=== PATIENT | male | born 1980 | race Caucasian/White ===

== ENCOUNTER → 2016-07-31 | Outpatient (REF) | payer OTHER ==
[~2016-07-31] MED LIST: CELE50CA; IBUP800T; TOPI25TA2; TRAM50TA2; VICO5TAB
== END ==
LOC: M SFHCLERA 09:57
PROVIDERS: ATTEND Physician Assistant
DX: J02.9 Acute pharyngitis, unspecified (principal)

== ENCOUNTER 2016-08-13 20:17 | Emergency (ER) | payer OTHER ==
[2016-08-13] MEDS ORDERED: KETOROLAC 30 MG/ML VIAL (J1885) As Ordered ONE (21:31)
[2016-08-13] MEDS ORDERED: ONDANSETRON 4MG/2ML VIAL (J2405) As Ordered ONE (21:31)
[2016-08-13 21:42] LABS: BASO % 0.4 % (0.0-1.0); EOS # 0.1 K/mm3 (0.0-0.50); EOS % 0.5 % (0.0-3.0); LARGE UNSTAINED CELL # 0.2 K/mm3 (0.0-0.4); LARGE UNSTAINED CELL % 1.3 % (0.0-4.0); LYMPH # 0.5 K/mm3 (1.5-4.5); LYMPH % 3.7 % (24.0-44.0); MEAN CORPUSCULAR HEMOGLOBIN 33.7 pg (27.0-33.0); MEAN CORPUSCULAR HGB CONC 35.7 g/dl (32.0-36.5); MEAN CORPUSCULAR VOLUME 94.4 fl (80.0-96.0); MONO # 0.7 K/mm3 (0.0-0.8); MONO % 5.1 % (0.0-5.0); NEUTROPHILS # 11.5 K/mm3 (1.8-7.7); NEUTROPHILS % 89.1 % (36.0-66.0); PLATELET COUNT, AUTOMATED 244 k/mm3 (150-450); RED CELL DISTRIBUTION WIDTH 12.6 % (11.5-14.5); WHITE BLOOD COUNT 12.9 K/mm3 (4.0-10.0)
[2016-08-13 21:49] LABS: ALBUMIN 4.7 GM/DL (3.2-5.2); ALBUMIN/GLOBULIN RATIO 1.21 (1.00-1.93); ALKALINE PHOSPHATASE 84 U/L (45-117); ALT/SGPT 69 U/L (12-78); AMYLASE 69 U/L (25-115); ANION GAP 10 MEQ/L (8-16); AST/SGOT 33 U/L (15-37); BILIRUBIN,DIRECT 0.2 MG/DL (0.0-0.2); BILIRUBIN,TOTAL 0.9 MG/DL (0.2-1.0); BLOOD UREA NITROGEN 21 MG/DL (7-18); CALCIUM LEVEL 9.3 MG/DL (8.5-10.1); CARBON DIOXIDE LEVEL 25 MEQ/L (21-32); CHLORIDE LEVEL 105 MEQ/L (98-107); CREATININE FOR GFR 1.25 MG/DL (0.70-1.30); GLOMERULAR FILTRATION RATE > 60.0 (>60); GLUCOSE, FASTING 163 MG/DL (70-105); POTASSIUM SERUM 3.7 MEQ/L (3.5-5.1); SODIUM LEVEL 140 MEQ/L (136-145); TOTAL PROTEIN 8.6 GM/DL (6.4-8.2)
[2016-08-13] MEDS ORDERED: ONDANSETRON 4 MG ORAL DISINTEGRATING TAB (S0181) As Ordered ONE (23:46)
[2016-08-13] MEDS ORDERED: NORCO 5/325MG TABLET (BULK) As Ordered ONE (23:46)
--- NOTE | 2016-08-14 | EDDOCDS ---
Nurse's Notes [facility] Name: Mayur Mora Age: 36 yrs Sex: Male : 1980 Arrival Date: 08/13/2016 Time: 20:17 Bed 17 Private MD: Diagnosis: Other and unspecified noninfective gastroenteritis and colitis;Acute pancreatitis Presentation: 08/13 20:35 Presenting complaint: Patient states: abdominal pain started around 530 pm in pts whole ko2 abdomen and then around 730 pm tonight pt had pain in left and right upper abdomen as well as diarrhea and nausea. Risk factors: the patient reports not having a history of previous torsion. Suicide/Homicide risk assessment- the patient denies having any suicidal and/or homicidal ideations and does not present with any other emotional, behavioral or mental health complaints. Transition of care: patient was not received from another setting of care. Care prior to arrival: See EMS report. 20:35 Acuity: EVELYN Level 3 ko2 20:35 Method Of Arrival: Ambulance ko2 22:37 Adult Sepsis Screening: The patient does not have new or worsening altered mentation. ko2 Patient's respiratory rate is less than 22. Systolic blood pressure is greater than 100. Patient has a qSOFA score of 0- Negative Sepsis Screen. 23:58 Status: retired. ko2 Triage Assessment: 20:41 General: Appears ill, Behavior is appropriate for age. Pain: Location: right upper ko2 quadrant and left upper quadrant. HIV screening NA for this visit. HIV screening NA for this visit. The patient is triaged at the bedside. See Assessment in Nurses Notes section of ED record. Neurological: Level of Consciousness is awake, alert. Cardiovascular: Heart tones S1 S2 present. Respiratory: Airway is patent Respiratory effort is even, unlabored, Respiratory pattern is regular, symmetrical. GI: Abdomen is non- distended Pt is actively vomiting Bowel sounds present X 4 quads. Reports. Derm: Skin is pink, warm & dry. Musculoskeletal: Range of motion intact in all extremities. Historical: - Allergies: No known drug Allergies; - Home Meds: 1. venlafaxine 75 mg oral cp24 3 caps once daily 2. atorvastatin 40 mg oral tab - PMHx: Hypercholesterolemia; Anxiety Disorder; PTSD; TBI; back pain; neck pain; - PSHx: Vasectomy; right shoulder; - Social history: Smoking status: Patient states was never smoker of tobacco. No barriers to communication noted, The patient speaks fluent Yoruba, Speaks appropriately for age. - Family history: Not pertinent. - : The pt / caregiver states he / she is not on anticoagulants. Home medication list is obtained from pill bottles. - Exposure Risk Screening:: None identified. Screenin:38 Screening information is obtained from the patient. Fall risk: No risks identified. ko2 Assistance ADL's: requires no assistance with activities of daily living. Abuse/DV Screen: The patient / caregiver reports he/she is: not in a situation that causes fear, pain or injury. Nutritional screening: No deficits noted. Advance Directives: Currently, there is no health care proxy. There is no active DNR order. There is no living will. There is no Power of Crop Grain Or Livestock Farm Manager. home support is adequate. Assessment: 20:40 General: See triage assessment. ko2 21:45 General: Appears ill, Behavior is appropriate for age, cooperative. Neurological: Level ko2 of Consciousness is awake, alert. Respiratory: Airway is patent Respiratory effort is even, unlabored. GI: Abdomen is non- distended. 22:37 General: Appears in no apparent distress, Behavior is appropriate for age, cooperative. ko2 Pain: Location: left upper quadrant and right upper quadrant Pain currently is 4 out of 10 on a pain scale. Neurological: Level of Consciousness is awake, alert. Respiratory: Airway is patent Respiratory effort is even, unlabored. Derm: Skin is normal. Vital Signs: 20:38 BP 125 / 93; Pulse 95; Resp 20; Temp 96.2(O); Pulse Ox 100% on R/A; Weight 104.33 kg; ko2 Height 5 ft. 10 in. (177.80 cm); Pain 10/10; 22:57 BP 123 / 71 LA Supine (auto/reg); Pulse 90 MON; Resp 18 S; Temp 96.6(T); Pulse Ox 100% cln on R/A; Pain 10/10; 20:38 Body Mass Index 33.00 (104.33 kg, 177.80 cm) ko2 Vitals: 20:38 Log In Time N/A - ambulance arrival. ko2 ED Course: 20:26 Patient visited by Albert Bui PCA. mdr 20:26 Patient moved to Waiting mdr 20:27 Laney Mckeon,RN is Primary Nurse. mdr 20:27 Patient moved to 17 mdr 20:38 Triage Initiated ko2 21:09 Patient visited by Laney Mckeon RN. ko2 21:09 Inserted saline lock: 20 gauge in left antecubital area and blood collected. The ko2 patient tolerated the procedure well. 21:10 [facility] ke 21:10 Patient visited by Usama Jones FNP. ke 21:10 Patient visited by Usama Jones FNP. ke 21:11 Patient visited by Laney Mckeon RN. ko2 21:23 Amylase Sent. ko2 21:23 Basic Metabolic Profile Sent. ko2 21:23 CBC with Diff Sent. ko2 21:23 Lipase Sent. ko2 21:23 Liver Profile Sent. ko2 21:36 Patient moved to Radiology lucy 22:02 Patient moved to 17 lucy 22:14 Patient visited by Laney Mckeon RN. ko2 22:38 The patient / caregiver is instructed regarding the plan of care and ED course. ko2 22:51 Patient visited by Usama Jones FNP. ke 23:01 Patient visited by Catalina Deras PCA. cln 23:10 [facility] Payment Agreement was scanned into [employer] and attached to record. zo 23:53 Discontinued lock intact, bleeding controlled, pressure dressing applied, No ko2 redness/swelling at site. No procedures done that require assistance. Administered Medications: 21:40 Drug: NS 0.9% 1000 ml [sodium chloride 0.9 % intravenous solution] Route: IV; Rate: ko2 bolus; Site: left antecubital; 21:41 Drug: Ondansetron 4 mg [ondansetron HCl 2 mg/mL intravenous solution (2 mL)] Route: ko2 IVP; Site: left antecubital; 21:41 Drug: ketorolac 30 mg [ketorolac 30 mg/mL (1 mL) injection solution (1 mL)] Route: IVP; ko2 Site: left antecubital; 23:52 Drug: HYDROcodone-acetaminophen 4 pack- 1 packets [hydrocodone 5 mg-acetaminophen 325 ko2 mg tablet (1 tabs)] {Co-Signature: [email or web address] (Shirlene Diallo RN).} Route: PO; 23:53 Drug: Ondansetron ODT 4 mg [ondansetron 4 mg disintegrating tablet (1 tabs)] Route: PO; ko2 Order Results: Lab Order: Amylase; SPEC'08/13/16 21:06 Test: AMYLASE; Value: 69; Range: 25-115; Units: U/L; Status: F Lab Order: Basic Metabolic Profile; SPEC'08/13/16 21:06 Test: GLUCOSE, FASTING; Value: 163; Range: 70-105; Abnormal: Above high normal; Units: MG/DL; Status: F Test: BLOOD UREA NITROGEN; Value: 21; Range: 7-18; Abnormal: Above high normal; Units: MG/DL; Status: F Test: CREATININE FOR GFR; Value: 1.25; Range: 0.70-1.30; Units: MG/DL; Status: F Test: GLOMERULAR FILTRATION RATE; Value: > 60.0; Range: >60; Status: F Test: SODIUM LEVEL; Value: 140; Range: 136-145; Units: MEQ/L; Status: F Test: POTASSIUM SERUM; Value: 3.7; Range: 3.5-5.1; Units: MEQ/L; Status: F Test: CHLORIDE LEVEL; Value: 105; Range: 98-107; Units: MEQ/L; Status: F Test: CARBON DIOXIDE LEVEL; Value: 25; Range: 21-32; Units: MEQ/L; Status: F Test: ANION GAP; Value: 10; Range: 8-16; Units: MEQ/L; Status: F Test: CALCIUM LEVEL; Value: 9.3; Range: 8.5-10.1; Units: MG/DL; Status: F Test Note: ; Units are mL/min/1.73 m2 Chronic Kidney Disease Staging per NKF: Stage I & II GFR >=60 Normal to Mildly Decreased Stage III GFR 30-59 Moderately Decreased Stage IV GFR 15-29 Severely Decreased Stage V GFR <15 Very Little GFR Left ESRD GFR <15 on MICROSTRATEGY ARCHITECT DEVELOPER Lab Order: CBC with Diff; SPEC'08/13/16 21:06 Test: WHITE BLOOD COUNT; Value: 12.9; Range: 4.0-10.0; Abnormal: Above high normal; Units: K/mm3; Status: F Test: RED BLOOD COUNT; Value: 5.36; Range: 4.30-6.10; Units: M/mm3; Status: F Test: HEMOGLOBIN; Value: 18.1; Range: 14.0-18.0; Abnormal: Above high normal; Units: g/dl; Status: F Test: HEMATOCRIT; Value: 50.6; Range: 42.0-52.0; Units: %; Status: F Test: MEAN CORPUSCULAR VOLUME; Value: 94.4; Range: 80.0-96.0; Units: fl; Status: F Test: MEAN CORPUSCULAR HEMOGLOBIN; Value: 33.7; Range: 27.0-33.0; Abnormal: Above high normal; Units: pg; Status: F Test: MEAN CORPUSCULAR HGB CONC; Value: 35.7; Range: 32.0-36.5; Units: g/dl; Status: F Test: RED CELL DISTRIBUTION WIDTH; Value: 12.6; Range: 11.5-14.5; Units: %; Status: F Test: PLATELET COUNT, AUTOMATED; Value: 244; Range: 150-450; Units: k/mm3; Status: F Test: NEUTROPHILS %; Value: 89.1; Range: 36.0-66.0; Abnormal: Above high normal; Units: %; Status: F Test: LYMPH %; Value: 3.7; Range: 24.0-44.0; Abnormal: Below low normal; Units: %; Status: F Test: MONO %; Value: 5.1; Range: 0.0-5.0; Abnormal: Above high normal; Units: %; Status: F Test: EOS %; Value: 0.5; Range: 0.0-3.0; Units: %; Status: F Test: BASO %; Value: 0.4; Range: 0.0-1.0; Units: %; Status: F Test: LARGE UNSTAINED CELL %; Value: 1.3; Range: 0.0-4.0; Units: %; Status: F Test: NEUTROPHILS #; Value: 11.5; Range: 1.8-7.7; Abnormal: Above high normal; Units: K/mm3; Status: F Test: LYMPH #; Value: 0.5; Range: 1.5-4.5; Abnormal: Below low normal; Units: K/mm3; Status: F Test: MONO #; Value: 0.7; Range: 0.0-0.8; Units: K/mm3; Status: F Test: EOS #; Value: 0.1; Range: 0.0-0.50; Units: K/mm3; Status: F Test: BASO #; Value: 0.0; Range: 0.0-0.2; Units: K/mm3; Status: F Test: LARGE UNSTAINED CELL #; Value: 0.2; Range: 0.0-0.4; Units: K/mm3; Status: F Lab Order: Lipase; SPEC'M 08/13/16 21:06 Test: LIPASE; Value: 511; Range: 73-393; Abnormal: Above high normal; Units: U/L; Status: F Lab Order: Liver Profile; SPEC' 08/13/16 21:06 Test: AST/SGOT; Value: 33; Range: 15-37; Units: U/L; Status: F Test: ALT/SGPT; Value: 69; Range: 12-78; Units: U/L; Status: F Test: ALKALINE PHOSPHATASE; Value: 84; Range: 45-117; Units: U/L; Status: F Test: BILIRUBIN,TOTAL; Value: 0.9; Range: 0.2-1.0; Units: MG/DL; Status: F Test: BILIRUBIN,DIRECT; Value: 0.2; Range: 0.0-0.2; Units: MG/DL; Status: F Test: TOTAL PROTEIN; Value: 8.6; Range: 6.4-8.2; Abnormal: Above high normal; Units: GM/DL; Status: F Test: ALBUMIN; Value: 4.7; Range: 3.2-5.2; Units: GM/DL; Status: F Test: ALBUMIN/GLOBULIN RATIO; Value: 1.21; Range: 1.00-1.93; Status: F Outcome: 22:56 Discharge ordered by Provider. ke 23:53 Discharge Assessment: Patient awake, alert and oriented x 3. No cognitive and/or ko2 functional deficits noted. Patient verbalized understanding of disposition instructions. Discharge Assessment: patient administered narcotics - no. The following High Risk Discharge criteria are identified: None. Condition: stable. Discharge instructions given to patient. 23:59 No special radiology studies were completed. Property sent home with patient. beth2 23:59 Patient left the ED. ko2 Signatures: Fly Bautista Karl, CORPORATE SERVICES MANAGER CORPORATE SERVICES MANAGER Gabriele Hamm Kari,RN RN ko2 Albert Bui, HULL SORTER HULL SORTER mdr Catalina Deras, HULL SORTER HULL SORTER cln Shirlene Diallo RN [email or web address] MTDD
--- NOTE | 2016-08-14 | EDDOCDS ---
Physician Documentation [facility] Name: Mayur Mora Age: 36 yrs Sex: Male : 1980 Arrival Date: 08/13/2016 Time: 20:17 Bed 17 Private MD: Disposition: 08/13/16 22:56 Discharged to Home/Self Care. Impression: Other and unspecified noninfective gastroenteritis and colitis, Acute pancreatitis. - Condition is Stable. - Discharge Instructions: Acute Pancreatitis, Viral Gastroenteritis. - Prescriptions for [place]ebul[place] 5- 325 mg Oral Tablet - take 1 tablet by ORAL route every 6 hours As needed MDD: 4 tabs; 20 tablet. ZOFRAN ODT 4 mg - dissolve 1 tablet by ORAL route 4 times per day As needed do not chew, do not swallow whole; 10 tablet. - Work Release Form - 2 day, Medication Reconciliation, Local Pharmacy Hours form. - Follow up: Private Physician; When: 4 - 5 days; Reason: Recheck today's complaints, Continuance of care. - Problem is an ongoing problem. - Symptoms are unchanged. Historical: - Allergies: No known drug Allergies; - Home Meds: 1. venlafaxine 75 mg oral cp24 3 caps once daily 2. atorvastatin 40 mg oral tab - PMHx: Hypercholesterolemia; Anxiety Disorder; PTSD; TBI; back pain; neck pain; - PSHx: Vasectomy; right shoulder; - Social history: Smoking status: Patient states was never smoker of tobacco. No barriers to communication noted, The patient speaks fluent Central African, Speaks appropriately for age. - Family history: Not pertinent. - : The pt / caregiver states he / she is not on anticoagulants. Home medication list is obtained from pill bottles. - Exposure Risk Screening:: None identified. Vital Signs: 08/13 20:38 BP 125 / 93; Pulse 95; Resp 20; Temp 96.2(O); Pulse Ox 100% on R/A; Weight 104.33 kg / ko2 230.01 lbs; Height 5 ft. 10 in. (177.80 cm); Pain 10/10; 22:57 BP 123 / 71 LA Supine (auto/reg); Pulse 90 MON; Resp 18 S; Temp 96.6(T); Pulse Ox 100% cln on R/A; Pain 10/10; 20:38 Body Mass Index 33.00 (104.33 kg, 177.80 cm) ko2 MDM: 21:18 NS 0.9% 1000 ml IV at bolus once ordered. ke 21:18 Ondansetron 4 mg IVP once ordered. ke 21:18 ketorolac 30 mg IVP once ordered. ke 21:18 IV Saline Lock ordered. ke 21:18 Undress patient appropriately for examination ordered. ke 21:19 Amylase Ordered. EDMS 21:19 Basic Metabolic Profile Ordered. EDMS 21:19 CBC with Diff Ordered. EDMS 21:19 Lipase Ordered. EDMS 21:19 Liver Profile Ordered. EDMS 21:19 Abdomen, Flat\E\Upright,PA Chest Ordered. EDMS 21:19 NOTHING BY MOUTH+DIET ordered. EDMS 21:50 Basic Metabolic Profile Reviewed. ke 21:50 CBC with Diff Reviewed. ke 21:50 Lipase Reviewed. ke 21:50 Liver Profile Reviewed. ke 21:50 Amylase Reviewed. ke 22:55 HYDROcodone-acetaminophen 4 pack- 5 mg-325 mg 1 packets PO Per package directions; ke Dispense with patient. 1 po q4h prn for pain ordered. 22:55 Ondansetron ODT Oral Disintegrating Tablet 4 mg PO once; to go please ordered. ke 22:59 Financial registration complete. zo 23:10 [facility] Payment Agreement was scanned into [employer] and attached to record. zo Administered Medications: 21:40 Drug: NS 0.9% 1000 ml [sodium chloride 0.9 % intravenous solution] Route: IV; Rate: ko2 bolus; Site: left antecubital; 21:41 Drug: Ondansetron 4 mg [ondansetron HCl 2 mg/mL intravenous solution (2 mL)] Route: ko2 IVP; Site: left antecubital; 21:41 Drug: ketorolac 30 mg [ketorolac 30 mg/mL (1 mL) injection solution (1 mL)] Route: IVP; ko2 Site: left antecubital; 23:52 Drug: HYDROcodone-acetaminophen 4 pack- 1 packets [hydrocodone 5 mg-acetaminophen 325 ko2 mg tablet (1 tabs)] {Co-Signature: [email or web address] (Shirlene Diallo RN).} Route: PO; 23:53 Drug: Ondansetron ODT 4 mg [ondansetron 4 mg disintegrating tablet (1 tabs)] Route: PO; ko2 Signatures: Dispatcher [employer] Usama Yan, EXECUTIVE DIRECTOR Gabriele Akins Kari,RN RN ko2 Shirlene Diallo RN [email or web address] The chart was reviewed and I authenticate all verbal orders and agree with the evaluation and treatment provided.Attachments: 23:10 [facility] Payment Agreement zo MTDD
--- NOTE | 2016-08-14 01:16 | REP ---
Clinical: Acute abdominal pain. Technique: Upright view of the chest with supine and upright views of the abdomen and pelvis. Findings: Frontal upright view of the chest demonstrates no acute cardiopulmonary process or free air below the diaphragm to suspect pneumoperitoneum. Supine and upright views of the abdomen and pelvis demonstrate nonspecific bowel gas pattern without obstruction or perforation. No organomegaly. No abnormal calcifications. Skeletal structures normal for age. Impression: Nonspecific bowel gas pattern. Signed by Jay Robin MD 08/14/2016 01:07 A
--- NOTE | 2016-08-16 01:00 | EDDOCDS ---
Physician Documentation [facility] Name: Mayur Mora Age: 36 yrs Sex: Male : 1980 Arrival Date: 08/13/2016 Time: 20:17 Bed 17 Private MD: Disposition: 08/13/16 22:56 Discharged to Home/Self Care. Impression: Other and unspecified noninfective gastroenteritis and colitis, Acute pancreatitis. - Condition is Stable. - Discharge Instructions: Acute Pancreatitis, Viral Gastroenteritis. - Prescriptions for [place] 5- 325 mg Oral Tablet - take 1 tablet by ORAL route every 6 hours As needed MDD: 4 tabs; 20 tablet. ZOFRAN ODT 4 mg - dissolve 1 tablet by ORAL route 4 times per day As needed do not chew, do not swallow whole; 10 tablet. - Work Release Form - 2 day, Medication Reconciliation, Local Pharmacy Hours form. - Follow up: Private Physician; When: 4 - 5 days; Reason: Recheck today's complaints, Continuance of care. - Problem is an ongoing problem. - Symptoms are unchanged. Historical: - Allergies: No known drug Allergies; - Home Meds: 1. venlafaxine 75 mg oral cp24 3 caps once daily 2. atorvastatin 40 mg oral tab - PMHx: Hypercholesterolemia; Anxiety Disorder; PTSD; TBI; back pain; neck pain; - PSHx: Vasectomy; right shoulder; - Social history: Smoking status: Patient states was never smoker of tobacco. No barriers to communication noted, The patient speaks fluent Nepalese, Speaks appropriately for age. - Family history: Not pertinent. - : The pt / caregiver states he / she is not on anticoagulants. Home medication list is obtained from pill bottles. - Exposure Risk Screening:: None identified. Vital Signs: 08/13 20:38 BP 125 / 93; Pulse 95; Resp 20; Temp 96.2(O); Pulse Ox 100% on R/A; Weight 104.33 kg / ko2 230.01 lbs; Height 5 ft. 10 in. (177.80 cm); Pain 10/10; 22:57 BP 123 / 71 LA Supine (auto/reg); Pulse 90 MON; Resp 18 S; Temp 96.6(T); Pulse Ox 100% cln on R/A; Pain 10/10; 20:38 Body Mass Index 33.00 (104.33 kg, 177.80 cm) ko2 MDM: 21:18 NS 0.9% 1000 ml IV at bolus once ordered. ke 21:18 Ondansetron 4 mg IVP once ordered. ke 21:18 ketorolac 30 mg IVP once ordered. ke 21:18 IV Saline Lock ordered. ke 21:18 Undress patient appropriately for examination ordered. ke 21:19 Amylase Ordered. EDMS 21:19 Basic Metabolic Profile Ordered. EDMS 21:19 CBC with Diff Ordered. EDMS 21:19 Lipase Ordered. EDMS 21:19 Liver Profile Ordered. EDMS 21:19 Abdomen, Flat\E\Upright,PA Chest Ordered. EDMS 21:19 NOTHING BY MOUTH+DIET ordered. EDMS 21:50 Basic Metabolic Profile Reviewed. ke 21:50 CBC with Diff Reviewed. ke 21:50 Lipase Reviewed. ke 21:50 Liver Profile Reviewed. ke 21:50 Amylase Reviewed. ke 22:55 HYDROcodone-acetaminophen 4 pack- 5 mg-325 mg 1 packets PO Per package directions; ke Dispense with patient. 1 po q4h prn for pain ordered. 22:55 Ondansetron ODT Oral Disintegrating Tablet 4 mg PO once; to go please ordered. ke 22:59 Financial registration complete. zo 23:10 [facility] Payment Agreement was scanned into [employer] and attached to record. zo 08/14 11:42 T-Sheet-- Draft Copy was scanned into [employer] and attached to record. gb Administered Medications: 08/13 21:40 Drug: NS 0.9% 1000 ml [sodium chloride 0.9 % intravenous solution] Route: IV; Rate: ko2 bolus; Site: left antecubital; 21:41 Drug: Ondansetron 4 mg [ondansetron HCl 2 mg/mL intravenous solution (2 mL)] Route: ko2 IVP; Site: left antecubital; 21:41 Drug: ketorolac 30 mg [ketorolac 30 mg/mL (1 mL) injection solution (1 mL)] Route: IVP; ko2 Site: left antecubital; 23:52 Drug: HYDROcodone-acetaminophen 4 pack- 1 packets [hydrocodone 5 mg-acetaminophen 325 ko2 mg tablet (1 tabs)] {Co-Signature: [email or web address] (Shirlene Diallo RN).} Route: PO; 23:53 Drug: Ondansetron ODT 4 mg [ondansetron 4 mg disintegrating tablet (1 tabs)] Route: PO; ko2 Signatures: Dispatcher [employer] EDAlia Velasquez, Serge Reg gb Usama Jones, ELECTION SUPERVISOR ELECTION SUPERVISOR Gabriele Hamm Kari,RN RN ko2 Shirlene Diallo RN [email or web address] The chart was reviewed and I authenticate all verbal orders and agree with the evaluation and treatment provided.Attachments: 23:10 [facility] Payment Agreement zo 08/14 11:42 T-Sheet-- Draft Copy gb Chart Complete MTDD
--- NOTE | 2016-08-16 01:00 | EDDOCDS ---
Physician Documentation [facility] Name: Mayur Mora Age: 36 yrs Sex: Male : 1980 Arrival Date: 08/13/2016 Time: 20:17 Bed 17 Private MD: Disposition: 08/13/16 22:56 Discharged to Home/Self Care. Impression: Other and unspecified noninfective gastroenteritis and colitis, Acute pancreatitis. - Condition is Stable. - Discharge Instructions: Acute Pancreatitis, Viral Gastroenteritis. - Prescriptions for [place] 5- 325 mg Oral Tablet - take 1 tablet by ORAL route every 6 hours As needed MDD: 4 tabs; 20 tablet. ZOFRAN ODT 4 mg - dissolve 1 tablet by ORAL route 4 times per day As needed do not chew, do not swallow whole; 10 tablet. - Work Release Form - 2 day, Medication Reconciliation, Local Pharmacy Hours form. - Follow up: Private Physician; When: 4 - 5 days; Reason: Recheck today's complaints, Continuance of care. - Problem is an ongoing problem. - Symptoms are unchanged. Historical: - Allergies: No known drug Allergies; - Home Meds: 1. venlafaxine 75 mg oral cp24 3 caps once daily 2. atorvastatin 40 mg oral tab - PMHx: Hypercholesterolemia; Anxiety Disorder; PTSD; TBI; back pain; neck pain; - PSHx: Vasectomy; right shoulder; - Social history: Smoking status: Patient states was never smoker of tobacco. No barriers to communication noted, The patient speaks fluent Cook Islander, Speaks appropriately for age. - Family history: Not pertinent. - : The pt / caregiver states he / she is not on anticoagulants. Home medication list is obtained from pill bottles. - Exposure Risk Screening:: None identified. Vital Signs: 08/13 20:38 BP 125 / 93; Pulse 95; Resp 20; Temp 96.2(O); Pulse Ox 100% on R/A; Weight 104.33 kg / ko2 230.01 lbs; Height 5 ft. 10 in. (177.80 cm); Pain 10/10; 22:57 BP 123 / 71 LA Supine (auto/reg); Pulse 90 MON; Resp 18 S; Temp 96.6(T); Pulse Ox 100% cln on R/A; Pain 10/10; 20:38 Body Mass Index 33.00 (104.33 kg, 177.80 cm) ko2 MDM: 21:18 NS 0.9% 1000 ml IV at bolus once ordered. ke 21:18 Ondansetron 4 mg IVP once ordered. ke 21:18 ketorolac 30 mg IVP once ordered. ke 21:18 IV Saline Lock ordered. ke 21:18 Undress patient appropriately for examination ordered. ke 21:19 Amylase Ordered. EDMS 21:19 Basic Metabolic Profile Ordered. EDMS 21:19 CBC with Diff Ordered. EDMS 21:19 Lipase Ordered. EDMS 21:19 Liver Profile Ordered. EDMS 21:19 Abdomen, Flat\E\Upright,PA Chest Ordered. EDMS 21:19 NOTHING BY MOUTH+DIET ordered. EDMS 21:50 Basic Metabolic Profile Reviewed. ke 21:50 CBC with Diff Reviewed. ke 21:50 Lipase Reviewed. ke 21:50 Liver Profile Reviewed. ke 21:50 Amylase Reviewed. ke 22:55 HYDROcodone-acetaminophen 4 pack- 5 mg-325 mg 1 packets PO Per package directions; ke Dispense with patient. 1 po q4h prn for pain ordered. 22:55 Ondansetron ODT Oral Disintegrating Tablet 4 mg PO once; to go please ordered. ke 22:59 Financial registration complete. zo 23:10 [facility] Payment Agreement was scanned into [employer] and attached to record. zo 08/14 11:42 T-Sheet-- Draft Copy was scanned into [employer] and attached to record. gb Administered Medications: 08/13 21:40 Drug: NS 0.9% 1000 ml [sodium chloride 0.9 % intravenous solution] Route: IV; Rate: ko2 bolus; Site: left antecubital; 21:41 Drug: Ondansetron 4 mg [ondansetron HCl 2 mg/mL intravenous solution (2 mL)] Route: ko2 IVP; Site: left antecubital; 21:41 Drug: ketorolac 30 mg [ketorolac 30 mg/mL (1 mL) injection solution (1 mL)] Route: IVP; ko2 Site: left antecubital; 23:52 Drug: HYDROcodone-acetaminophen 4 pack- 1 packets [hydrocodone 5 mg-acetaminophen 325 ko2 mg tablet (1 tabs)] {Co-Signature: [email or web address] (Shirlene Diallo RN).} Route: PO; 23:53 Drug: Ondansetron ODT 4 mg [ondansetron 4 mg disintegrating tablet (1 tabs)] Route: PO; ko2 Signatures: Dispatcher [employer] EDAlia Velasquez, Serge Reg gb Usama Jones, RECESSING MACHINE OPERATOR RECESSING MACHINE OPERATOR Gabriele Hamm Kari,RN RN ko2 Shirlene Diallo RN [email or web address] The chart was reviewed and I authenticate all verbal orders and agree with the evaluation and treatment provided.Attachments: 23:10 [facility] Payment Agreement zo 08/14 11:42 T-Sheet-- Draft Copy gb Chart Complete MTDD
--- NOTE | 2016-08-16 01:01 | EDDOCDS ---
Nurse's Notes [facility] Name: Mayur Mora Age: 36 yrs Sex: Male : 1980 Arrival Date: 08/13/2016 Time: 20:17 Bed 17 Private MD: Diagnosis: Other and unspecified noninfective gastroenteritis and colitis;Acute pancreatitis Presentation: 08/13 20:35 Presenting complaint: Patient states: abdominal pain started around 530 pm in pts whole ko2 abdomen and then around 730 pm tonight pt had pain in left and right upper abdomen as well as diarrhea and nausea. Risk factors: the patient reports not having a history of previous torsion. Suicide/Homicide risk assessment- the patient denies having any suicidal and/or homicidal ideations and does not present with any other emotional, behavioral or mental health complaints. Transition of care: patient was not received from another setting of care. Care prior to arrival: See EMS report. 20:35 Acuity: EVELYN Level 3 ko2 20:35 Method Of Arrival: Ambulance ko2 22:37 Adult Sepsis Screening: The patient does not have new or worsening altered mentation. ko2 Patient's respiratory rate is less than 22. Systolic blood pressure is greater than 100. Patient has a qSOFA score of 0- Negative Sepsis Screen. 23:58 Status: retired. ko2 Triage Assessment: 20:41 General: Appears ill, Behavior is appropriate for age. Pain: Location: right upper ko2 quadrant and left upper quadrant. HIV screening NA for this visit. HIV screening NA for this visit. The patient is triaged at the bedside. See Assessment in Nurses Notes section of ED record. Neurological: Level of Consciousness is awake, alert. Cardiovascular: Heart tones S1 S2 present. Respiratory: Airway is patent Respiratory effort is even, unlabored, Respiratory pattern is regular, symmetrical. GI: Abdomen is non- distended Pt is actively vomiting Bowel sounds present X 4 quads. Reports. Derm: Skin is pink, warm & dry. Musculoskeletal: Range of motion intact in all extremities. Historical: - Allergies: No known drug Allergies; - Home Meds: 1. venlafaxine 75 mg oral cp24 3 caps once daily 2. atorvastatin 40 mg oral tab - PMHx: Hypercholesterolemia; Anxiety Disorder; PTSD; TBI; back pain; neck pain; - PSHx: Vasectomy; right shoulder; - Social history: Smoking status: Patient states was never smoker of tobacco. No barriers to communication noted, The patient speaks fluent Turkmen, Speaks appropriately for age. - Family history: Not pertinent. - : The pt / caregiver states he / she is not on anticoagulants. Home medication list is obtained from pill bottles. - Exposure Risk Screening:: None identified. Screenin:38 Screening information is obtained from the patient. Fall risk: No risks identified. ko2 Assistance ADL's: requires no assistance with activities of daily living. Abuse/DV Screen: The patient / caregiver reports he/she is: not in a situation that causes fear, pain or injury. Nutritional screening: No deficits noted. Advance Directives: Currently, there is no health care proxy. There is no active DNR order. There is no living will. There is no Power of [employer]. home support is adequate. Assessment: 20:40 General: See triage assessment. ko2 21:45 General: Appears ill, Behavior is appropriate for age, cooperative. Neurological: Level ko2 of Consciousness is awake, alert. Respiratory: Airway is patent Respiratory effort is even, unlabored. GI: Abdomen is non- distended. 22:37 General: Appears in no apparent distress, Behavior is appropriate for age, cooperative. ko2 Pain: Location: left upper quadrant and right upper quadrant Pain currently is 4 out of 10 on a pain scale. Neurological: Level of Consciousness is awake, alert. Respiratory: Airway is patent Respiratory effort is even, unlabored. Derm: Skin is normal. Vital Signs: 20:38 BP 125 / 93; Pulse 95; Resp 20; Temp 96.2(O); Pulse Ox 100% on R/A; Weight 104.33 kg; ko2 Height 5 ft. 10 in. (177.80 cm); Pain 10/10; 22:57 BP 123 / 71 LA Supine (auto/reg); Pulse 90 MON; Resp 18 S; Temp 96.6(T); Pulse Ox 100% cln on R/A; Pain 10/10; 20:38 Body Mass Index 33.00 (104.33 kg, 177.80 cm) ko2 Vitals: 20:38 Log In Time N/A - ambulance arrival. ko2 ED Course: 20:26 Patient visited by Albert Bui PCA. mdr 20:26 Patient moved to Waiting mdr 20:27 Laney Mckeon,RN is Primary Nurse. mdr 20:27 Patient moved to 17 mdr 20:38 Triage Initiated ko2 21:09 Patient visited by Laney Mckeon RN. ko2 21:09 Inserted saline lock: 20 gauge in left antecubital area and blood collected. The ko2 patient tolerated the procedure well. 21:10 [facility] ke 21:10 Patient visited by Usama Jones FNP. ke 21:10 Patient visited by Usama Jones FNP. ke 21:11 Patient visited by Laney Mckeon RN. ko2 21:23 Amylase Sent. ko2 21:23 Basic Metabolic Profile Sent. ko2 21:23 CBC with Diff Sent. ko2 21:23 Lipase Sent. ko2 21:23 Liver Profile Sent. ko2 21:36 Patient moved to Radiology lucy 22:02 Patient moved to 17 lucy 22:14 Patient visited by Laney Mckeon RN. ko2 22:38 The patient / caregiver is instructed regarding the plan of care and ED course. ko2 22:51 Patient visited by Usama Jones FNP. ke 23:01 Patient visited by Catalina Deras, JESSICA. cln 23:10 [facility] Payment Agreement was scanned into ClearMy[employer] and attached to record. zo 23:53 Discontinued lock intact, bleeding controlled, pressure dressing applied, No ko2 redness/swelling at site. No procedures done that require assistance. 08/14 01:20 Abdomen, Flat\E\Upright,PA Chest Returned. EDMS 11:42 T-Sheet-- Draft Copy was scanned into [employer] and attached to record. gb Administered Medications: 08/13 21:40 Drug: NS 0.9% 1000 ml [sodium chloride 0.9 % intravenous solution] Route: IV; Rate: ko2 bolus; Site: left antecubital; 21:41 Drug: Ondansetron 4 mg [ondansetron HCl 2 mg/mL intravenous solution (2 mL)] Route: ko2 IVP; Site: left antecubital; 21:41 Drug: ketorolac 30 mg [ketorolac 30 mg/mL (1 mL) injection solution (1 mL)] Route: IVP; ko2 Site: left antecubital; 23:52 Drug: HYDROcodone-acetaminophen 4 pack- 1 packets [hydrocodone 5 mg-acetaminophen 325 ko2 mg tablet (1 tabs)] {Co-Signature: [email or web address] (Shirlene Diallo RN).} Route: PO; 23:53 Drug: Ondansetron ODT 4 mg [ondansetron 4 mg disintegrating tablet (1 tabs)] Route: PO; ko2 Order Results: Lab Order: Amylase; SPEC'M 08/13/16 21:06 Test: AMYLASE; Value: 69; Range: 25-115; Units: U/L; Status: F Lab Order: Basic Metabolic Profile; SPEC'M 08/13/16 21:06 Test: GLUCOSE, FASTING; Value: 163; Range: 70-105; Abnormal: Above high normal; Units: MG/DL; Status: F Test: BLOOD UREA NITROGEN; Value: 21; Range: 7-18; Abnormal: Above high normal; Units: MG/DL; Status: F Test: CREATININE FOR GFR; Value: 1.25; Range: 0.70-1.30; Units: MG/DL; Status: F Test: GLOMERULAR FILTRATION RATE; Value: > 60.0; Range: >60; Status: F Test: SODIUM LEVEL; Value: 140; Range: 136-145; Units: MEQ/L; Status: F Test: POTASSIUM SERUM; Value: 3.7; Range: 3.5-5.1; Units: MEQ/L; Status: F Test: CHLORIDE LEVEL; Value: 105; Range: 98-107; Units: MEQ/L; Status: F Test: CARBON DIOXIDE LEVEL; Value: 25; Range: 21-32; Units: MEQ/L; Status: F Test: ANION GAP; Value: 10; Range: 8-16; Units: MEQ/L; Status: F Test: CALCIUM LEVEL; Value: 9.3; Range: 8.5-10.1; Units: MG/DL; Status: F Test Note: ; Units are mL/min/1.73 m2 Chronic Kidney Disease Staging per NKF: Stage I & II GFR >=60 Normal to Mildly Decreased Stage III GFR 30-59 Moderately Decreased Stage IV GFR 15-29 Severely Decreased Stage V GFR <15 Very Little GFR Left ESRD GFR <15 on [employer] [facility] Lab Order: CBC with Diff; SPEC'M 08/13/16 21:06 Test: WHITE BLOOD COUNT; Value: 12.9; Range: 4.0-10.0; Abnormal: Above high normal; Units: K/mm3; Status: F Test: RED BLOOD COUNT; Value: 5.36; Range: 4.30-6.10; Units: M/mm3; Status: F Test: HEMOGLOBIN; Value: 18.1; Range: 14.0-18.0; Abnormal: Above high normal; Units: g/dl; Status: F Test: HEMATOCRIT; Value: 50.6; Range: 42.0-52.0; Units: %; Status: F Test: MEAN CORPUSCULAR VOLUME; Value: 94.4; Range: 80.0-96.0; Units: fl; Status: F Test: MEAN CORPUSCULAR HEMOGLOBIN; Value: 33.7; Range: 27.0-33.0; Abnormal: Above high normal; Units: pg; Status: F Test: MEAN CORPUSCULAR HGB CONC; Value: 35.7; Range: 32.0-36.5; Units: g/dl; Status: F Test: RED CELL DISTRIBUTION WIDTH; Value: 12.6; Range: 11.5-14.5; Units: %; Status: F Test: PLATELET COUNT, AUTOMATED; Value: 244; Range: 150-450; Units: k/mm3; Status: F Test: NEUTROPHILS %; Value: 89.1; Range: 36.0-66.0; Abnormal: Above high normal; Units: %; Status: F Test: LYMPH %; Value: 3.7; Range: 24.0-44.0; Abnormal: Below low normal; Units: %; Status: F Test: MONO %; Value: 5.1; Range: 0.0-5.0; Abnormal: Above high normal; Units: %; Status: F Test: EOS %; Value: 0.5; Range: 0.0-3.0; Units: %; Status: F Test: BASO %; Value: 0.4; Range: 0.0-1.0; Units: %; Status: F Test: LARGE UNSTAINED CELL %; Value: 1.3; Range: 0.0-4.0; Units: %; Status: F Test: NEUTROPHILS #; Value: 11.5; Range: 1.8-7.7; Abnormal: Above high normal; Units: K/mm3; Status: F Test: LYMPH #; Value: 0.5; Range: 1.5-4.5; Abnormal: Below low normal; Units: K/mm3; Status: F Test: MONO #; Value: 0.7; Range: 0.0-0.8; Units: K/mm3; Status: F Test: EOS #; Value: 0.1; Range: 0.0-0.50; Units: K/mm3; Status: F Test: BASO #; Value: 0.0; Range: 0.0-0.2; Units: K/mm3; Status: F Test: LARGE UNSTAINED CELL #; Value: 0.2; Range: 0.0-0.4; Units: K/mm3; Status: F Lab Order: Lipase; SPEC'M 08/13/16 21:06 Test: LIPASE; Value: 511; Range: 73-393; Abnormal: Above high normal; Units: U/L; Status: F Lab Order: Liver Profile; SPEC'M 08/13/16 21:06 Test: AST/SGOT; Value: 33; Range: 15-37; Units: U/L; Status: F Test: ALT/SGPT; Value: 69; Range: 12-78; Units: U/L; Status: F Test: ALKALINE PHOSPHATASE; Value: 84; Range: 45-117; Units: U/L; Status: F Test: BILIRUBIN,TOTAL; Value: 0.9; Range: 0.2-1.0; Units: MG/DL; Status: F Test: BILIRUBIN,DIRECT; Value: 0.2; Range: 0.0-0.2; Units: MG/DL; Status: F Test: TOTAL PROTEIN; Value: 8.6; Range: 6.4-8.2; Abnormal: Above high normal; Units: GM/DL; Status: F Test: ALBUMIN; Value: 4.7; Range: 3.2-5.2; Units: GM/DL; Status: F Test: ALBUMIN/GLOBULIN RATIO; Value: 1.21; Range: 1.00-1.93; Status: F Radiology Order: Abdomen, Flat\E\Upright,PA Chest Test: Abdomen, Flat\E\Upright,PA Chest REASON FOR EXAMINATION: Abdomen Pain; Clinical: Acute abdominal pain.; ; Technique: Upright view of the chest with supine and upright views of the; abdomen and pelvis.; ; Findings: Frontal upright view of the chest demonstrates no acute; cardiopulmonary process or free air below the diaphragm to suspect; pneumoperitoneum. Supine and upright views of the abdomen and pelvis demonstrate; nonspecific bowel gas pattern without obstruction or perforation. No; organomegaly. No abnormal calcifications. Skeletal structures normal for age.; ; Impression:; Nonspecific bowel gas pattern.; ; ; Signed by; Jay Robin MD 08/14/2016 01:07 A; Outcome: 22:56 Discharge ordered by Provider. maikel 23:53 Discharge Assessment: Patient awake, alert and oriented x 3. No cognitive and/or ko2 functional deficits noted. Patient verbalized understanding of disposition instructions. Discharge Assessment: patient administered narcotics - no. The following High Risk Discharge criteria are identified: None. Condition: stable. Discharge instructions given to patient. 23:59 No special radiology studies were completed. Property sent home with patient. ko2 23:59 Patient left the ED. ko2 Signatures: Dispatcher [employer] EDMS Fly Bautista Gloria, Reg Reg gb Usama Jones, ASSOCIATE DIRECTOR OF NURSING ASSOCIATE DIRECTOR OF NURSING Gabriele Hamm Kari,RN RN ko2 Albert Bui, CAR PORTER CAR PORTER Catalina Gordon, CAR PORTER CAR PORTER anju Diallo RN [email or web address] Chart Complete MTDD
== END 2016-08-13 23:59 | disposition home or self-care (01) ==
LOC: M ED 20:17
DX: K85.90 Acute pancreatitis without necrosis or infection, unspecified (principal); K52.9 Noninfective gastroenteritis and colitis, unspecified; R11.2 Nausea with vomiting, unspecified; E78.00 Pure hypercholesterolemia, unspecified; F41.9 Anxiety disorder, unspecified; F43.10 Post-traumatic stress disorder, unspecified; M54.2 Cervicalgia; Z87.820 Personal history of traumatic brain injury; Z79.899 Other long term (current) drug therapy
CPT/HCPCS: 36415; 74022; 80048; 80076; 82150; 83690; 85025; 96374; 96375; 99284; J1885; J2405

== ENCOUNTER 2019-12-11 12:44 | Emergency (ER) | payer OTHER, SELFPAY ==
[~2019-12-11] VITALS: Ht 177.8 cm; Wt 86.4 kg
[2019-12-11] MEDS ORDERED: LIDOCAINE 2% W/EPIN INJ 20ML **PRES FREE INJ ONE (13:15)
[2019-12-11] MEDS ORDERED: NEOSPORIN TOP OINT 15GM TOP STA (13:19)
[2019-12-11] MEDS ORDERED: LATU20TA PO (13:22)
[2019-12-11] MEDS ORDERED: QUET100T2 PO (13:22)
--- NOTE | 2019-12-11 13:29 | REP ---
CT study of the cervical spine without contrast: History: Trauma. Technique: Helical scanning is acquired and overlapping 2 mm high resolution axial images were generated and reviewed at bone and soft tissue window settings. Coronal and sagittal multiplanar re-formations images are generated. CT findings: There is no evidence of cervical spine element fracture. No skull base fracture is seen. Cervical vertebral body heights are preserved. Alignment is normal. Facet joints are normally aligned bilaterally at each cervical level on multiplanar re-formations images. There is no evidence of intraspinal or paraspinal hematoma. No extra vertebral abnormality is seen. Impression: Negative CT study of the cervical spine without contrast. No fracture seen. Electronically Signed by Jose Zaldivar MD 12/11/2019 01:20 P
[2019-12-11] MEDS ORDERED: PERCOCET 5MG/325MG TAB PO ONE (13:30)
[2019-12-11 14:30] VITALS: BP 154/58
--- NOTE | 2019-12-11 15:46 | REP ---
CT BRAIN WITHOUT CONTRAST: HISTORY: Trauma. CT FINDINGS: Bony calvarium is intact. Visualized paranasal sinuses are clear. No skull fracture is seen. On soft tissue window settings, carrillo/white differentiation pattern is normal above below the tentorium. There is no evidence of intracranial hemorrhage. No extra-axial fluid collection is seen. There is no evidence of contusion, mass, or infarct. IMPRESSION: Negative noncontrast brain CT. Electronically Signed by Jose Zaldivar MD 12/11/2019 04:08 P
--- NOTE | 2019-12-11 15:47 | REP ---
MAXILLOFACIAL CT STUDY WITHOUT CONTRAST: HISTORY: Trauma. FINDINGS: The nasal bone and inferior maxillary spine are intact. Orbital margins are intact. Paranasal sinus margins are intact. Zygomatic arches show no evidence of fracture. No mandibular fracture is seen. There is a small mucous retention cyst in the floor the right maxillary sinus. The paranasal sinuses are otherwise clear. The nasal septum bows slightly to the right. No intraorbital hematoma or mass is seen. Deep facial soft tissues are unremarkable. IMPRESSION: No traumatic abnormality noted. Electronically Signed by Jose Zaldivar MD 12/11/2019 04:08 P
== END 2019-12-11 14:45 | disposition home or self-care (01) ==
LOC: M ED 12:44 → EDBD 12:44 → M ED 14:45
DX: S01.81XA Laceration without foreign body of other part of head, initial encounter (principal); S61.419A Laceration without foreign body of unspecified hand, initial encounter; W22.8XXA Striking against or struck by other objects, initial encounter; Y92.098 Other place in other non-institutional residence as the place of occurrence of the external cause; Z79.899 Other long term (current) drug therapy